=== PATIENT | female | born 1970 | race Caucasian/White ===

== ENCOUNTER → 2016-05-09 18:32 | Outpatient (CLI) | payer MEDICARE ==
[2015-02-20 12:32] VITALS: BMI 46.3
[~2016-05-09 18:32] MED LIST: ADDERALL 30 MG30 MG PO; ATIVAN0.5 MG PO; BACTROBAN NASAL1 GM NASAL; BRINTELLIX10 MG PO; CELEBREX200 MG PO; CYCLOBENZAPRINE10 MG PO; DICLOFENAC PO; ELIQUIS2.5 MG PO; EMBEDA ER 50-21 EACH PO; HYDROCODON-ACE1 EAC9 PO; MOVANTIK25 MG PO; NEURONTIN 300300 MG PO; NORCO 10/325 TA1 TA1 PO; NUVIGIL250 MG PO; OMEPRAZOLE20 M1 PO; OXYBUTYNIN CHLOR5 MG PO; PERCOCET 10/3251 TA1 PO; PROZAC20 MG PO; SOMA350 MG PO; VESICARE10 MG PO; VESICARE5 MG PO; VOLTAREN75 MG PO; XANAX0.5 MG PO; XANAX1 MG PO; ZANAFLEX2 M1 PO; [UNRECOGNIZED DRUG - OTHER] PO
== END | disposition home or self-care (01) ==
LOC: D.LABREF 18:32
DX: M17.12 Unilateral primary osteoarthritis, left knee (principal); Z11.8 Encounter for screening for other infectious and parasitic diseases

== ENCOUNTER 2016-05-25 09:30 | Inpatient (IN) | payer MEDICARE ==
[~2016-05-25] VITALS: Ht 167.6 cm; Wt 118.2 kg
[2016-05-25 10:39] LABS: BASOPHILS 0.5 % (0.0-2.0); EOSINOPHILS 5.7 % (0-7); HEMATOCRIT 32.6 % (36.0-48.0); HEMOGLOBIN 10.1 g/dL (12-16); IMMATURE GRANULOCYTES 0.2 % (0-5); LYMPHOCYTES 29.5 % (15-50); MCH 22.4 pg (26.0-34.0); MCV 72.4 fL (80.0-100.0); MEAN PLATELET VOLUME 9.8 fL (7.4-10.4); MONOCYTES 10.6 % (2-11); NEUTROPHILS 53.5 % (40-80); PLATELET COUNT 234 10x3/uL (130-400); RDW 17.3 % (11.5-14.5); WBC 6.5 10x3/uL (4.8-10.8)
[2016-05-25 10:45] LABS: APPEARANCE HAZY (CLEAR); BACTERIA MODERATE /hpf (NONE SEEN); BILIRUBIN NEGATIVE (NEGATIVE); COLOR YELLOW (YELLOW); GLUCOSE NEGATIVE (NEGATIVE); KETONE NEGATIVE (NEGATIVE); LEUKOCYTE ESTERASE TRACE (NEGATIVE); MUCUS <1+ /lpf (NONE SEEN); NITRITE NEGATIVE (NEGATIVE); PROTEIN NEGATIVE (NEGATIVE); RED CELLS - URINE OCC /hpf (0-5); SPECIFIC GRAVITY 1.015 (1.005-1.020); UROBILINOGEN NORMAL (NORMAL)
[2016-05-25 10:47] LABS: ANION GAP 11.6 mmol/L (8-16); CALCIUM 8.5 mg/dL (8.5-10.1); CARBON DIOXIDE 29.9 mmol/L (21.0-32.0); CREATININE - SERUM 0.9 mg/dL (0.6-1.3); POTASSIUM - SERUM 3.5 mmol/L (3.5-5.1)
[2016-05-25 10:49] LABS: INR 1.07 (0.85-1.17); PROTIME 13.7 SECONDS (11.6-15.0)
[2016-05-29] VITALS (12 sets, daily range): BP systolic 101–148; BP diastolic 46–94; Ht 167.6 cm; Wt 118.2 kg
--- NOTE | 2016-05-29 12:30 | NUR ---
PATIENT RECEIVED TO FLOOR FROM PACU VIA BED. NO SIGNS OF DISTRESS NOTED. VITAL SIGNS STABLE. ORIENTED TO ROOM. DRESSING TO LEFT KNEE CLEAN, DRY AND INTACT WITH ICE PACK IN PLACE. SCDS ON BILATERALLY. INCENTIVE SPIROMETER AND TEACHING ON USE PROVIDED. STATES UNDERSTANDING. SIDE RAILS UP X3. BED IN LOW POSITION. CALL LIGHT IN REACH. YELLOW FALL RISK BAND PLACED ON PATIENT. BED ALARM ON.
--- NOTE | 2016-05-29 15:05 | NUR ---
PATIENT ALERT IN BED. RESTING QUIETLY WITH EYES CLOSED. WAKES EASY. SCHEDULED MEDICATION ADMINISTERED. VITAL SIGNS STABLE. SIDE RAILS UP X2. BED IN LOW POSITION. CALL LIGHT IN REACH.
--- NOTE | 2016-05-29 18:40 | NUR ---
LEFT LEG PLACED IN CPM. ICE PACK IN PLACE. DENIES NEEDS. SIDE RAILS UP X2. BED IN LOW POSITION. CALL LIGHT IN REACH.
--- NOTE | 2016-05-29 19:30 | NUR ---
RECIEVED SHIFT REPORT. PT IS LYING IN BED. ALERT AND ORIENTED AND ABLE TO VERBALIZE NEEDS. IV IS PATENT AND FLUIDS ARE RUNNING PER ORDER. SCD'S ON. CPM ON. DRESSING TO LEFT KNEE C/D/I. PT STATES PAIN IS 8/10. NO NEEDS ARE VERBALIZED AT THIS TIME. WILL CONTINUE TO MONITOR. SIDE RAILS ARE UP X 2. BED IS IN LOWEST POSITION. BED ALARM IS ON FOR SAFETY. CALL LIGHT IS WITHIN REACH.
--- NOTE | 2016-05-29 21:05 | NUR ---
SHIFT ASSESSMENT COMPLETED. NIGHT MEDS TO BE GIVEN BY STUDENT AND INSTRUCTOR. WILL MONITOR. SIDE RAILS X 2. BED LOW. BED ALARM ON. CALL LIGHT IN REACH.
[2016-05-30 04:00] VITALS: BP 109/63
[2016-05-30 06:32] LABS: HEMATOCRIT 28.5 % (36.0-48.0); HEMOGLOBIN 8.6 g/dL (12-16); MCH 22.1 pg (26.0-34.0); MCHC 30.2 g/dL (31.0-37.0); MCV 73.3 fL (80.0-100.0); MEAN PLATELET VOLUME 10.5 fL (7.4-10.4); RBC 3.89 10x6/uL (4.00-5.40); RDW 17.4 % (11.5-14.5); WBC 7.8 10x3/uL (4.8-10.8)
--- NOTE | 2016-05-30 07:10 | NUR ---
PATIENT RECEIVED ALERT IN BED WITH CPM TO LEFT LEG. C/O PAIN 10/10 AND NEEDING TO VOID. CPM REMOVED. VOIDED 600CC WITHOUT DIFFICULTY. NORCO PER PRN ORDER. ICE PACK TO LEFT KNEE. DENIES FURTHER NEEDS. SIDE RAILS UP X2. BED IN LOW POSITION. CALL LIGHT IN REACH.
[2016-05-30 08:33] VITALS: BP 114/64
--- NOTE | 2016-05-30 08:38 | NUR ---
PATIENT ALERT IN BED EATING BREAKFAST. SCHEDULED MEDICATION ADMINISTERED. DENIES NEEDS. SIDE RAILS UP X2. BED IN LOW POSITION. CALL LIGHT IN REACH.
--- NOTE | 2016-05-30 10:15 | NUR ---
PATIENT SITTING UP IN CHAIR AT BEDSIDE ALERT. NO SIGNS OF DISTRESS NOTED. CALL LIGHT IN REACH.
[2016-05-30 12:50] VITALS: BP 122/70
--- NOTE | 2016-05-30 13:24 | NUR ---
* Is the patient Alert and Oriented? Yes 0 * How many steps to enter\exit or inside your home? Ramp 0 * PCP Dr. Sherman 0 * Pharmacy [facility] 0 * Preadmission Environment Home Alone 0 * ADLs Independent 0 * Equipment Bedside Commode Cane Rolling Walker Shower Chair 0 * List name and contact numbers for known caregivers / representatives who currently or will assist patient after discharge: Mother Amy Torres [phone] * Additional services required to return to the preadmission environment? Yes 0 * Can the patient safely return to the preadmission environment? Yes 0 * Has this patient been hospitalized within the prior 30 days at any hospital? No 05/30/2016 13:28 DCP: Discharge Planning Patient Name: GARTH JACOBS Admission Status: Elective Accout number: [id number] Admission Date: 05-29-2016 : 1970 Admission Diagnosis:UNILATERAL PRIMARY OSTEOARTHRITIS, LEFT KNEE Attending: RAH Current LOS: 1 Anticipated DC Date: 05-31-2016 Planned Disposition: Outpatient PT\OT Primary Insurance: MEDICARE A & B Discharge Planning Comments: CM met with patient to assess dc plans/needs. Patient states she lives alone, but her mother lives next door. She states her mother will be staying with her after discharge, along with her 25 year old daughter. Prior to hospitalization she reports she was independent with all ADL's & IADL's. She has a cane, walker, shower chair & BSC at home. She has chosen [facility] for outpatient physical therapy - Appointment scheduled for 06/02 @ 0945 - Rx faxed. CPM has been ordered by [facility] MD office prior to admission & will be delivered to the home after discharge. Anticipate dc 05/31. CM will follow. Financial Sales Representative: Milli Dominguez
--- NOTE | 2016-05-30 15:23 | NUR ---
ASSISTED UP TO BSC AND BACK TO BED SBA X1. VOIDED WITHOUT DIFFICULTY. POSITIONED SELF FOR COMFORT. NORCO PER PRN ORDER. NO FURTHER NEEDS. SIDE RAILS UP X2. BED IN LOW POSITION. CALL LIGHT IN REACH.
[2016-05-30 17:33] VITALS: BP 114/81
--- NOTE | 2016-05-30 18:15 | NUR ---
LEFT LEG IN CPM. DENIES NEEDS. SIDE RAILS UP X2. BED IN LOW POSITION. CALL LIGHT IN REACH.
--- NOTE | 2016-05-30 19:05 | NUR ---
PATIENT IN BED CRYING REQUESTING "A SHOT FOR PAIN." ANMOL LIANG WITH DR MELINDA TAY. WILL AWAIT CALLBACK
--- NOTE | 2016-05-30 19:25 | NUR ---
RECIEVED SHIFT REPORT. PT IS LYING IN BED. ALERT AND ORIENTED AND ABLE TO VERBALIZE NEEDS. IV IS PATENT AND SALINE LOC AT THIS TIME. CPM ON. SCD'S ON. DRESSING TO LEFT KNEE C/D/I. PT STATES PAIN IS 10/10. PT IS AMBULATORY WITH ASSISTANCE. NO NEEDS ARE VERBALIZED AT THIS TIME. WILL CONTINUE TO MONITOR. SIDE RAILS ARE UP X 2. BED IS IN LOWEST POSITION. CALL LIGHT IS WITHIN REACH.
--- NOTE | 2016-05-30 21:29 | NUR ---
SHIFT ASSESSMENT COMPLETED. NIGHT MEDS GIVEN WITH NO PROBLEMS. NO NEEDS ARE VOICED. WILL MONITOR. SIDE RAILS X 2. BED LOW. CALL LIGHT IN REACH.
[2016-05-30 22:58] VITALS: BP 154/97
[2016-05-31 02:04] VITALS: BP 144/76
[2016-05-31 05:37] LABS: HEMATOCRIT 27.6 % (36.0-48.0); HEMOGLOBIN 8.4 g/dL (12-16); MCH 22.3 pg (26.0-34.0); MCHC 30.4 g/dL (31.0-37.0); MCV 73.2 fL (80.0-100.0); MEAN PLATELET VOLUME 10.5 fL (7.4-10.4); RBC 3.77 10x6/uL (4.00-5.40); RDW 17.4 % (11.5-14.5)
[2016-05-31 06:10] LABS: WBC 10.1 10x3/uL (4.8-10.8)
[2016-05-31 06:15] VITALS: BP 122/70
--- NOTE | 2016-05-31 07:00 | NUR ---
PATIENT RECEIVED IN LOW NINO POSITION RESTING WITH EYES CLOSED. RESPIRATIONS EVEN AND UNLABORED. LEFT LEG IN CPM .SIDE RAILS UP X2. BED IN LOW POSITION. CALL LIGHT IN REACH.
--- NOTE | 2016-05-31 08:00 | NUR ---
PATIENT SITTING UP IN BED ALERT. NO SIGNS OF DISTRESS NOTED. SCHEDULED MEDICATION ADMINISTERED. SIDE RAILS UP X2. BED IN LOW POSITION. CALL LIGHT IN REACH.
[2016-05-31] MEDS ORDERED: ELIQUIS2.5 MG PO (08:08)
[2016-05-31] MEDS ORDERED: PERCOCET 10/3251 TA1 PO (08:08)
[2016-05-31 08:46] VITALS: BP 122/75
--- NOTE | 2016-05-31 10:30 | NUR ---
PATIENT SITTING UP IN CHAIR RESTING WITH EYES CLOSED. RESPIRATIONS EVEN AND UNLABORED. WAKES EASY. CALL LIGHT IN REACH. DENIES NEEDS.
--- NOTE | 2016-05-31 11:45 | NUR ---
PATIENT SITTING UP IN CHAIR ALERT. NO SIGNS OF DISTRESS NOTED. RATES PAIN 5/10. CALL LIGHT IN REACH. DENIES NEEDS.
--- NOTE | 2016-05-31 12:36 | NUR ---
SITTING UP IN CHAIR AT BEDSIDE. C/O PAIN 10/12. TORADOL ADMINISTERED PER PRN ORDER. NO FURTHER NEEDS VOICED. CALL LIGHT TIN REACH.
[2016-05-31 12:45] VITALS: BP 143/79
--- NOTE | 2016-05-31 13:30 | NUR ---
SITTING UP IN BED ALERT. RATES PAIN 08/12. DENIES NEEDS. BED IN LOW POSITION. CALL LIGHT IN REACH.
--- NOTE | 2016-05-31 15:00 | NUR ---
ALERT IN BED VISITING WITH GUEST. NO SIGNS OF DISTRESS NOTED. BED IN LOW POSITION. CALL LIGHT IN REACH.
[2016-05-31 16:43] VITALS: BP 126/66
--- NOTE | 2016-05-31 17:11 | NUR ---
PERCOCET ADMINISTERED PER PRN ORDER. RATES PAIN 09/11. DENIES NEEDS. SIDE RAILS UP X2. BED IN LOW POSITION. CALL LIGHT IN REACH.
[2016-05-31 20:00] VITALS: BP 126/69
--- NOTE | 2016-05-31 20:07 | NUR ---
REC'D.IN BED CPM TO LEFT LEG DRSG DRY AND INTACT.FOOT WARM PEDAL PULSE PRESENT WIGGLES TOES AND DORSIFLEXES WITHOUT DIFFICULTY WILL CONTINUE TO MONITOR FOR ELLEN CHGES NEUROVASCULAR STATUS AND FOLLOW CURRENT PLAN OF CARE
[2016-06-01] VITALS: BP 129/77
--- NOTE | 2016-06-01 01:49 | NUR ---
PATIENT RESTING WITH EYES CLOSED. NO VISIBLE SIGNS OF DISTRESS. BED IN LOWEST POSITION AND CALL LIGHT WITHIN REACH.
[2016-06-01 04:00] VITALS: BP 110/52
--- NOTE | 2016-06-01 08:00 | NUR ---
AWAKE AND ALERT AT THIS TIME. CPM ON AND IN WORKING ORDER. SCD'S OFF PER PT. BED ALARM ON AND IN WORKING ORDER. REQUESTING COFFEE AT THIS TIME. RESPIRATIONS EVEN AND NON LABORED. DENIES FURTHER NEEDS, CALL LIGHT IN REACH. WILL CONTINUE WITH PLAN OF CARE.
--- NOTE | 2016-06-01 08:19 | NUR ---
CPM REMOVED AT THIS TIME. SKEIN SPOOLER REPORTS HYPOTENSIVE BLOOD PRESSURE ON MACHINE READING. WILL RE-CHECK A MANUAL. BP 104/66 MANUALLY.
--- NOTE | 2016-06-01 08:22 | NUR ---
06/01/2016 8:17 DCP: Discharge Planning Patient Name: GARTH JACOBS Encounter No: [id number] : 1970 Primary Insurance: MEDICARE A & B Anticipated DC Date: 05-31-2016 Planned Disposition: Outpatient PT\OT External Planned Provider: : DCP follow-up note: Patient and family in agreement with discharge plan. No changes to plan. CPM will be delivered to the home after dc. Case management will follow and assist as needed. Milli Dominguez
[2016-06-01 08:25] VITALS: BP 104/66
[2016-06-01 13:03] VITALS: BP 108/46
--- NOTE | 2016-06-01 14:00 | NUR ---
IV D/C AND DISCHARGE PAPERWORK REVIEWED BY JENSEN HEMPHILL AT THIS TIME. DENIES QUESTIONS OR CONCERNS. D/C HOME WITH MOTHER AT THIS TIME. DRESSING REMAINS INTACT IT IS NOT SATURATED.
--- NOTE | 2016-06-10 10:10 | OP ---
PATIENT NAME: GARTH JACOBS MEDICAL RECORD: [id number] :[birth year] LOCATION:D.[id number] ADMISSION DATE:05/29/16 SURGEON: XAVIER LAWRENCE MD DATE OF OPERATION: 05/29/2016 Orthopedic Surgery Operative Note PREOPERATIVE DIAGNOSIS: Tricompartmental osteoarthritis of the left knee. POSTOPERATIVE DIAGNOSIS: Tricompartmental osteoarthritis of the left knee. PROCEDURE: Left total knee arthroplasty--press fit. SURGEON: Xavier Lawrence MD. ANESTHESIA: General. INTRAOPERATIVE COMPLICATIONS: None. SUMMARY OF PATHOLOGIC FINDINGS: The patient had significant osteoarthritis in the medial side, which had also given 2 osteoarthritis on the lateral side. 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 The patient tolerated until she began to have a secondary arthritis in the other compartments. OPERATIVE SUMMARY IN DETAIL: After obtaining the appropriate preoperative orthopedic surgery consent as well as anesthetic consultation, evaluation and clearance, the patient was brought to the operating room and placed on the operating table in supine position. After adequate general laryngeal mask was administered, tourniquet was placed about the proximal aspect of the left lower extremity. Left lower extremity was then prepped and draped in routine sterile fashion. The leg was elevated and exsanguinated. Tourniquet was inflated to 350 mmHg. Routine midline incision was taken down. Paramedian arthrotomy was performed. Patella was everted and distal femur was exposed. The findings as noted as above were seen. The patient had a deep chondral lesion as well as what appeared to be necrosis in the area of the previous orthobiologic fixation along with the kissing lesion on the tibial plateau as well as patellofemoral arthrosis and grade 2 arthritis had lateral compartment. Distal femoral intramedullary guide hole was created. The distal femoral cuts were made. Appropriate measurements were taken. Chamfer cuts were made and then the proximal tibia was exposed in its entirety. Again, intramedullary guide hole was created for proximal tibial cutting. Trials corresponding to the above sizes, that is a #5 press fit femur and a # 5 tibial component were taken through a range of motion and found to be excellent in all planes. The patella was then cut in preparation for the Tritanium back symmetric patella size 9 x 31. After final preparations were made, the components were put into place, excellent fit including the patella. The patella was pressed into place using the patellar compression system for the Triathlon system. The patella was reduced and tightened. The knee was taken through range of motion and found to be stable in all planes. The entire area was copiously irrigated and then the paramedian arthrotomy was closed with #2 Ethibond followed by #1 Vicryl, 2-0 Vicryl and skin serge. Sterile dressings were applied. The patient was awakened, taken to recovery room in stable condition. All final needle and sponge counts were correct. OPERATIVE REPORT [id number] GARTH JACOBS TRANSINT:[id number] Voice Confirmation ID: [id number] DOCUMENT ID: [id number] MELINDA JUAREZ, XAVIER JAMES at 1010 CC: [id number] DICTATION DATE: 06/08/16 1057 SUPERVISOR COMPRESSED YEAST: 06/08/16 1332 DIS IN 06/01/16 [id number] [place] [address]
== END 2016-06-01 14:35 | disposition home or self-care (01) | DRG 470 ==
LOC: D.SDCHOLD 09:30 → D.MS 05-29 09:18 → D.SDCHOLD 05-29 09:30 → D.MS 05-29 12:09
PROVIDERS: ADMIT Orthopaedic Surgery
PROC: 0SRD0J9 Replacement of Left Knee Joint with Synthetic Substitute, Cemented, Open Approach (ICD-10-PCS; principal; 2016-05-29 10:00)
DX: M17.12 Unilateral primary osteoarthritis, left knee (principal); D62 Acute posthemorrhagic anemia; K21.9 Gastro-esophageal reflux disease without esophagitis; G47.30 Sleep apnea, unspecified; G47.419 Narcolepsy without cataplexy

== ENCOUNTER 2016-11-13 07:25 | Day surgery (SDC) | payer MEDICARE ==
[2016-11-10 14:06] LABS: HEMATOCRIT 32.3 % (36.0-48.0); MCH 22.2 pg (26.0-34.0); MCV 71.6 fL (80.0-100.0); MEAN PLATELET VOLUME 9.9 fL (7.4-10.4); RBC 4.51 10x6/uL (4.00-5.40); RDW 17.6 % (11.5-14.5)
[~2016-11-13] VITALS: Ht 167.6 cm; Wt 121.1 kg
[2016-11-13 07:13] VITALS: BP 151/94; Ht 167.6 cm; Wt 121.1 kg
[~2016-11-13 07:25] MED LIST changes: +HYDROCODONE-APA1 TAB PO; +REQUIP0.5 MG PO
[2016-11-13] MEDS ORDERED: OXYCODONE HCL5 MG PO (09:12)
--- NOTE | 2016-11-13 14:11 | NUR ---
1350 PT'S RIDE IS HERE, RELEASED IN WC WITH ESCORT.
--- NOTE | 2016-11-13 14:39 | OP ---
PATIENT NAME: GARTH JACOBS MEDICAL RECORD: [id number] :[birth year] LOCATION:D[facility] ADMISSION DATE: SURGEON: XAVIER CASSIDY MD DATE OF OPERATION: 11/13/2016 SURGEON: Xavier Cassidy MD PREOPERATIVE DIAGNOSES: Lipoma of the right upper back, lipoma of the right upper extremity, lipoma left upper extremity. POSTOPERATIVE DIAGNOSES: Lipoma of the right upper back, lipoma of the right upper extremity, lipoma left upper extremity. PROCEDURE PERFORMED: 1. Excisional biopsy of back lipoma 6 x 5 x 4 cm. 2. Excisional biopsy of right upper extremity lipoma 3 x 3 x 2 cm. 3. Excisional biopsy of left upper extremity 4 x 3 x 3 cm. ANESTHESIA: General. COMPLICATIONS: None. SPECIMENS: As above. Case was clean. ESTIMATED BLOOD LOSS: 20 cc. OPERATIVE COURSE: After consent was obtained, the patient was taken to the operating room and the patient was intubated and she was then place into the prone position. A timeout was taken to confirm the correct patient and procedure. The back and extremities were prepped and draped in typical sterile fashion. A 5 cc of local anesthetic were injected into the right upper extremity. Transverse skin incision made with a 15 blade scalpel. Dissection continued with Metzenbaum scissors. The lipoma was grasped with an Allis and was circumferentially dissected using Metzenbaum scissors. Biopsy total lipoma size was 3 x 3 x 2 cm and sent for permanent pathology. Next, the local anesthetic was injected into the right upper back approximately 10 cc. Transverse skin incision was made. The lipoma was circumferentially dissected using Metzenbaum scissors. Total size was 6 x 5 x 4 cm and sent for permanent pathology. The wound was then closed in 2 layers. The deep layer was closed with 3-0 Vicryl suture. The skin was closed with 4-0 Monocryl. The right upper extremity lesion, incision was closed with 4-0 Monocryl. Next, local anesthetic was injected into the left upper extremity. Skin incisions made with a 15 blade scalpel. The lipoma was circumferentially dissected using Metzenbaum scissors. It measured 4 x 3 x 3 cm. Incision was then closed with 4-0 Monocryl, Mastisol and Steri-Strips. At the end of the case, all needle and instrument counts were correct. No complications occurred. The patient was extubated and transferred to the PACU in stable condition. TRANSINT:[id number] Voice Confirmation ID: [id number] DOCUMENT ID: [id number] OPERATIVE REPORT [id number] GARTH JACOBS,XAVIER Naidu MD at 1439 CC: [id number] DICTATION DATE: 11/13/16910 ROLLING MACHINE OPERATOR: 11/13/16 1325 [facility] 11/13/[address] [address]
== END 2016-11-13 13:50 | disposition home or self-care (01) ==
LOC: D.OPS 07:25 → D.PAN 08:30 → D.OPS 08:30
PROVIDERS: Anesthesiology
DX: D17.1 Benign lipomatous neoplasm of skin and subcutaneous tissue of trunk (principal); L72.0 Epidermal cyst; K21.9 Gastro-esophageal reflux disease without esophagitis; I83.93 Asymptomatic varicose veins of bilateral lower extremities; R32 Unspecified urinary incontinence; G47.33 Obstructive sleep apnea (adult) (pediatric); Z68.41 Body mass index [BMI] 40.0-44.9, adult; Z01.812 Encounter for preprocedural laboratory examination; E66.01 Morbid (severe) obesity due to excess calories

== ENCOUNTER → 2017-08-07 14:01 | Outpatient (CLI) | payer MEDICARE, MEDICAID ==
[2016-11-13 07:13] VITALS: BMI 43.2
[~2017-08-07 14:01] MED LIST changes: +OXYCODONE HCL5 MG PO
[2017-08-07 14:38] LABS: BASOPHILS 0.9 % (0-2); HEMATOCRIT 30.8 % (36.0-48.0); HEMOGLOBIN 9.2 g/dL (12-16); IMMATURE GRANULOCYTES 0.2 % (0-5); LYMPHOCYTES 37.9 % (15-50); MCH 20.7 pg (26.0-34.0); MCHC 29.9 g/dL (31.0-37.0); MCV 69.4 fL (80.0-100.0); MEAN PLATELET VOLUME 9.2 fL (7.4-10.4); MONOCYTES 7.5 % (2-11); NEUTROPHILS 49.5 % (40-80); PLATELET COUNT 270 10x3/uL (130-400); RBC 4.44 10x6/uL (4.00-5.40); RDW 17.6 % (11.5-14.5); WBC 5.8 10x3/uL (4.8-10.8)
[2017-08-07 14:58] LABS: ALBUMIN 3.7 g/dL (3.4-5.0); ALKALINE PHOSPHATASE 69 U/L (46-116); ALT (SGPT) 19 U/L (10-68); BILIRUBIN - TOTAL 0.22 mg/dL (0.2-1.3); CALC OSMOLALITY 285 mosm/kg (275-300); CARBON DIOXIDE 28.9 mmol/L (21.0-32.0); CHLORIDE - SERUM 105 mmol/L (98-107); CHOL - HDL RATIO 4.5 ratio (2.3-4.1); CHOLESTEROL, TOTAL 205 mg/dL (0-200); CREATININE - SERUM 0.8 mg/dL (0.6-1.3); GLUCOSE 103 mg/dL (74-106); HDL CHOLESTEROL 46 mg/dL (32-96); LDL CHOLESTEROL 137 mg/dL (0-100); POTASSIUM - SERUM 4.2 mmol/L (3.5-5.1); PROTEIN - SERUM 7.4 g/dL (6.4-8.2); SODIUM 142 mmol/L (136-145); TRIGLYCERIDE 111 mg/dL (30-200); UREA NITROGEN 21 mg/dL (7-18); eGFR NON AFRICAN AMERICAN 81 mL/min (90-120)
[2017-08-08 07:31] LABS: FOLATE (FOLIC ACID) - SERUM 16.9 ng/mL (>3.0)
== END | disposition home or self-care (01) ==
LOC: D.LAB 14:01
PROVIDERS: Surgery
DX: K21.9 Gastro-esophageal reflux disease without esophagitis (principal); E66.2 Morbid (severe) obesity with alveolar hypoventilation; G47.33 Obstructive sleep apnea (adult) (pediatric)

== ENCOUNTER 2017-09-06 08:31 | Outpatient (CLI) | payer MEDICARE ==
[2016-11-13 07:13] VITALS: BMI 43.2
== END 2017-09-06 10:30 ==
LOC: D.OPS 08:31
DX: K21.9 Gastro-esophageal reflux disease without esophagitis (principal)

== ENCOUNTER 2017-11-29 09:26 | Day surgery (SDC) | payer MEDICARE ==
[~2017-11-29] VITALS: Ht 167.6 cm; Wt 116.1 kg
--- NOTE | ~2017-11-29 | OP ---
PATIENT NAME: GARTH JACOBS MEDICAL RECORD: [id number] :[birth year] LOCATION:[facility] ADMISSION DATE: SURGEON: MATT CESAR DATE OF OPERATION: 11/29/2017 SURGEON: Matt Cesar DPM PREOPERATIVE DIAGNOSES: 1. Hallux abductovalgus deformity, right foot. 2. Degenerative joint changes second metatarsophalangeal joint, right foot. POSTOPERATIVE DIAGNOSES: 1. Hallux abductovalgus deformity, right foot. 2. Degenerative joint changes second metatarsophalangeal joint, right foot. PROCEDURES: 1. Rah bunionectomy, right foot. 2. Eben-implant arthroplasty with partial metatarsal head resection second metatarsophalangeal joint, right foot. ANESTHESIA: General. HEMOSTASIS: Pneumatic ankle tourniquet inflated to 250 mmHg for 76 minutes. ESTIMATED BLOOD LOSS: Minimal. MATERIALS: One 2.5-mm cannulated screw (Beeline) and one lesser metatarsophalangeal joint eben-implant (Beeline). INJECTABLES: A 30 mL of 0.5% bupivacaine plain. The patient has a longstanding history of pain associated with the bunion deformity on the right foot as well as degenerative joint second metatarsophalangeal joint. We have discussed the proposed procedure. Risks and benefits were reviewed. Complications were discussed. She was appropriately consented for the above-mentioned procedure. The patient was brought to the operating room and placed on the operating table in a supine position. A time-out was called. Dr. Cesar identified the patient, the surgical site, and the surgery to be performed. Once appropriate anesthesia was obtained, the foot was prepped and draped in the usual aseptic manner. The pneumatic ankle tourniquet was inflated to 250 mmHg on the well-padded right ankle. DESCRIPTION OF PROCEDURE #1: Rah bunionectomy, right foot: Attention was directed to the dorsal aspect of the first metatarsophalangeal joint where a 6-cm linear incision was made just medial to the extensor hallucis longus tendon. This incision was carried deep to the soft tissue with care being taken to retract all vital neurovascular structures. All bleeders were cauterized along the way. Through this incision, the first intermetatarsal space was entered utilizing both blunt and sharp dissection. The conjoint tendon of the abductor hallucis tendon was noted at the base of the proximal phalanx and was sharply transected. Attention was then directed further proximally to the level OPERATIVE REPORT [id number] GARTH JACOBS of the fibular sesamoidal ligament. It was isolated and sharply transected. Attention was then redirected to the dorsal aspect of the first metatarsophalangeal joint where the periosteum was reflected from the first metatarsal head and the base of the proximal phalanx. The medial aspect of the first metatarsal head was noted to be hypertrophied. Utilizing a sagittal saw, all hypertrophied bone was removed. Next, utilizing a sagittal saw, a V-shaped osteotomy was created in the head of the first metatarsal. This is a humalhi-agw-odlnclm osteotomy with the apex oriented distally. The capital fragment was translocated laterally and impacted upon the first metatarsal shaft. Next, utilizing the medical representative's recommended technique, one 2.5-mm screw was placed across the osteotomy. Excellent fixation was noted after placement of the screw. All remaining over hanging bone from the medial aspect of the first metatarsal shaft was removed with the sagittal saw. All rough and sharp bone edges were smoothed with a rasp and rongeur. The surgical site was then irrigated with copious amounts of normal sterile saline via bulb syringe. At this stage, intraoperative decision was made to not perform the Golden osteotomy as the toe was noted to be in a rectus position. The periosteum was reapproximated and coapted utilizing 3-0 Vicryl. The subcutaneous was reapproximated and coapted utilizing 4-0 Vicryl. The skin was reapproximated and coapted utilizing 4-0 nylon. DESCRIPTION OF PROCEDURE #2: Eben-implant arthroplasty second metatarsophalangeal joint, right foot: Attention was directed to the dorsal aspect of the second metatarsophalangeal joint where a 4-cm linear incision was made. This incision was carried deep to soft tissue with care being taken to retract all vital neurovascular structures. All bleeders were cauterized along the way. The periosteum was then reflected from the second metatarsophalangeal joint thus exposing the joint. The head of the first metatarsal was noted to be severely eroded and essentially free of cartilage. It was also hypertrophied. The base of the proximal phalanx also was noted to have degenerative changes. All hypertrophied bone was removed with rongeur and the sagittal saw. Next, utilizing the medical representative's recommended technique, a partial metatarsal head resection was performed utilizing a sagittal saw and then the appropriate implant was placed into the second metatarsal head utilizing the medical representative's recommended technique. The second metatarsophalangeal joint was then placed through a range of motion and the range of motion was noted to be increased. Surgical site was then irrigated with copious amounts of normal sterile saline via bulb syringe. All remaining sharp bone edges were smoothed with a rasp or rongeur. The periosteum was then reapproximated and coapted utilizing 3-0 Vicryl. The subcutaneous was then reapproximated and coapted utilizing 4-0 Vicryl. The skin was then reapproximated and coapted utilizing 4-0 nylon. A dressing consisting of Xeroform, 4 x 4's, Kerlix, and Jose Manuel bandage was applied to the right foot. The pneumatic ankle tourniquet was deflated and capillary refill time was immediate to all digits of the right foot. The patient tolerated the procedure and anesthesia well. She left the operating room with vital signs stable and capillary refill time intact. The patient was discharged home with instructions to ice and elevate the right foot. She has a boot to help offload the foot. She has my cell phone number for after-hour difficulties. She was provided with appropriate pain medication. There were no complications with this procedure. We will follow up with her in 1 week. OPERATIVE REPORT [id number] GARTH JACOBS TRANSINT:[id number] Voice Confirmation ID: [id number] DOCUMENT ID: [id number] MATT CESAR CC: [id number] DICTATION DATE: 11/29/17 1525 CHEF INSTRUCTOR: 11/29/17 1559 [facility] [address] [place] [address]
[2017-11-29 09:55] LABS: HEMATOCRIT 31.9 % (36.0-48.0); HEMOGLOBIN 9.6 g/dL (12-16); MCH 21.2 pg (26.0-34.0); MCHC 30.1 g/dL (31.0-37.0); MCV 70.4 fL (80.0-100.0); MEAN PLATELET VOLUME 9.8 fL (7.4-10.4); RBC 4.53 10x6/uL (4.00-5.40); RDW 18.1 % (11.5-14.5); WBC 6.1 10x3/uL (4.8-10.8)
[2017-11-29 12:11] VITALS: BP 146/83; Ht 167.6 cm; Wt 116.1 kg
== END 2017-11-29 17:30 | disposition home or self-care (01) ==
LOC: D.PAN 09:26 → D.OPS 11:45 → D.PAN 11:45
PROVIDERS: Anesthesiology
DX: M20.11 Hallux valgus (acquired), right foot (principal); M19.071 Primary osteoarthritis, right ankle and foot; Z01.812 Encounter for preprocedural laboratory examination

== ENCOUNTER → 2018-01-21 06:53 | Outpatient (CLI) | payer MEDICARE ==
[2017-11-29 12:11] VITALS: BMI 41.4
== END | disposition home or self-care (01) ==
LOC: D.RT 06:53
DX: R06.09 Other forms of dyspnea (principal)

== ENCOUNTER → 2018-04-01 07:11 | Day surgery (SDC) | payer MEDICARE ==
[~2018-04-01] VITALS: Ht 167.6 cm; Wt 127.3 kg
[2018-04-01 07:42] LABS: BASOPHILS 0.6 % (0-2); EOSINOPHILS 4.4 % (0-7); HEMATOCRIT 30.9 % (36.0-48.0); HEMOGLOBIN 9.3 g/dL (12-16); IMMATURE GRANULOCYTES 0.1 % (0-5); LYMPHOCYTES 34.5 % (15-50); MCH 20.6 pg (26.0-34.0); MCHC 30.1 g/dL (31.0-37.0); MCV 68.5 fL (80.0-100.0); MEAN PLATELET VOLUME 9.9 fL (7.4-10.4); MONOCYTES 10.1 % (2-11); NEUTROPHILS 50.3 % (40-80); PLATELET COUNT 263 10x3/uL (130-400); RBC 4.51 10x6/uL (4.00-5.40); RDW 18.4 % (11.5-14.5)
[2018-04-01 07:52] VITALS: BP 167/95; Ht 167.6 cm; Wt 127.3 kg
[2018-04-01 08:03] LABS: HCG SERUM NEGATIVE (NEGATIVE)
[2018-04-01 08:14] LABS: ALBUMIN 3.4 g/dL (3.4-5.0); ALKALINE PHOSPHATASE 56 U/L (46-116); ALT (SGPT) 16 U/L (10-68); BILIRUBIN - TOTAL 0.25 mg/dL (0.2-1.3); CALC OSMOLALITY 279 mosm/kg (275-300); CARBON DIOXIDE 25.6 mmol/L (21.0-32.0); CHLORIDE - SERUM 103 mmol/L (98-107); CREATININE - SERUM 0.8 mg/dL (0.6-1.3); GLUCOSE 107 mg/dL (74-106); POTASSIUM - SERUM 4.1 mmol/L (3.5-5.1); PROTEIN - SERUM 7.5 g/dL (6.4-8.2); SODIUM 139 mmol/L (136-145); UREA NITROGEN 18 mg/dL (7-18); eGFR NON AFRICAN AMERICAN 81 mL/min (90-120)
--- NOTE | 2018-04-01 09:19 | NUR ---
0920 IV DC'D. CATHETER INTACT. PRESSURE HELD. NO BLEEDING AT SITE. BANDAID APPLIED.
== END | disposition home or self-care (01) ==
LOC: D.OPS 07:11
PROVIDERS: Anesthesiology
DX: K21.0 Gastro-esophageal reflux disease with esophagitis (principal); K44.9 Diaphragmatic hernia without obstruction or gangrene; K29.70 Gastritis, unspecified, without bleeding; E66.2 Morbid (severe) obesity with alveolar hypoventilation; G47.33 Obstructive sleep apnea (adult) (pediatric); I83.90 Asymptomatic varicose veins of unspecified lower extremity; Z68.41 Body mass index [BMI] 40.0-44.9, adult; Z87.891 Personal history of nicotine dependence; Z96.659 Presence of unspecified artificial knee joint; M19.90 Unspecified osteoarthritis, unspecified site; F32.9 Major depressive disorder, single episode, unspecified; F41.9 Anxiety disorder, unspecified; Z01.812 Encounter for preprocedural laboratory examination

== ENCOUNTER 2018-05-02 14:47 | Inpatient (IN) | payer MEDICARE ==
[~2018-05-02] VITALS: Ht 167.6 cm; Wt 137.4 kg
[2018-05-03 14:39] LABS: HEMATOCRIT 31.8 % (36.0-48.0); HEMOGLOBIN 9.6 g/dL (12-16); MCH 20.6 pg (26.0-34.0); MCHC 30.2 g/dL (31.0-37.0); MCV 68.4 fL (80.0-100.0); RBC 4.65 10x6/uL (4.00-5.40); RDW 18.6 % (11.5-14.5); WBC 7.2 10x3/uL (4.8-10.8)
[2018-05-06] VITALS (7 sets, daily range): BP systolic 122–133; BP diastolic 78–86; BMI 46.7; BMI 45.3
[2018-05-06 12:24] LABS: HEMATOCRIT 31.4 % (36.0-48.0); HEMOGLOBIN 9.3 g/dL (12-16)
[2018-05-06 13:24] LABS: HEMATOCRIT 31.2 % (36.0-48.0); HEMOGLOBIN 9.3 g/dL (12-16); MCH 20.7 pg (26.0-34.0); MCHC 29.8 g/dL (31.0-37.0); MCV 69.5 fL (80.0-100.0); MEAN PLATELET VOLUME 10.4 fL (7.4-10.4); RBC 4.49 10x6/uL (4.00-5.40); WBC 9.9 10x3/uL (4.8-10.8)
[2018-05-07] VITALS: BP 91/54
[2018-05-07 04:00] VITALS: BP 97/59
[2018-05-07 06:11] LABS: ALBUMIN 2.8 g/dL (3.4-5.0); ANION GAP 17.5 mmol/L (8-16); BILIRUBIN - TOTAL 0.62 mg/dL (0.2-1.3); CALCIUM 7.9 mg/dL (8.5-10.1); CARBON DIOXIDE 22.2 mmol/L (21.0-32.0); POTASSIUM - SERUM 4.7 mmol/L (3.5-5.1)
[2018-05-07 06:16] LABS: BASOPHILS 0.1 % (0-2); EOSINOPHILS 0 % (0-7); IMMATURE GRANULOCYTES 0.3 % (0-5); LYMPHOCYTES 5.7 % (15-50); MCH 20.5 pg (26.0-34.0); MCHC 29.3 g/dL (31.0-37.0); MCV 69.9 fL (80.0-100.0); MEAN PLATELET VOLUME 10.8 fL (7.4-10.4); MONOCYTES 10.2 % (2-11); NEUTROPHILS 83.7 % (40-80); RDW 19.3 % (11.5-14.5)
[2018-05-07 06:28] LABS: RBC 3.46 10x6/uL (4.00-5.40); WBC 17.8 10x3/uL (4.8-10.8)
[2018-05-07 06:29] LABS: HEMATOCRIT 24.2 % (36.0-48.0); HEMOGLOBIN 7.1 g/dL (12-16); PLATELET COUNT 309 10x3/uL (130-400)
--- NOTE | 2018-05-07 06:39 | NUR ---
194) REC'D IN BED SOMEWHAT SEDATED STILL OPENS EYES AND TALKS THEN GOES BACK TO SLEEP BP 100/48. AT BEDSIDE.SCD'S INTACT.BANDAGE WINDING MACHINE OPERATOR MORPHINE REMAINS INTACT AT 1MG Q10MIN WITH 10MG Q4HR LOCKOUT.WILL CONTINUE TO MONITOR FOR ANY CHGES. AND FOLLOW CURRENT PLAN OF CARE.
[2018-05-07 09:24] VITALS: BP 122/88
[2018-05-07 12:00] VITALS: BP 102/63
--- NOTE | 2018-05-07 14:28 | MORECARE ---
CASE MANAGEMENT DISCHARGE SUMMARY PATIENT: GARTH JACOBS UNIT: [id number] ADM DATE: 05/06/18 AGE: 47 : 68 SEX: F ROOM/BED: D.2235 AUTHOR: CATRINA,DOC PHYSICIAN: REFERRING PHYSICIAN: XAVIER CASSIDY MD DATE OF SERVICE: 05/07/18 Discharge Plan Patient Name: GARTH JACOBS Facility: [facility]:[place] : 1970 Planned Disposition: Home Anticipated Discharge Date: Discharge Date: Expected LOS: Initial Reviewer: [email or web address] Initial Review Date: 05/07/2018 Generated: 05/07/18 3:28 pm Comments DCP- Discharge Planning Updated by [email or web address]: Angelina Singleton on 05/07/18 1:[address] Patient Name: GARTH JACOBS Admission Status: Elective Accout number: [id number] Admission Date: 05-06-2018 : 1970 Admission Diagnosis: Attending: XAVIER CASSIDY Current LOS: 1 Anticipated DC Date: Planned Disposition: Home Primary Insurance: MEDICARE A & B Discharge Planning Comments: CM met with patient to complete initial dc planning assessment. CM educated patient on the CM role and verbal consent given by patient to complete assessment. Patient lives at home with her . At discharge patient plans to return and feels this is a safe discharge. CM discussed availability of home health and medical equipment. Patient denied known discharge needs at this time. States her will drive her home on discharge. CM will continue to follow and will assist as needed with dc plans/needs. Information Security Manager: Angelina Singleton DCPIA - Discharge Planning Initial Assessment Updated by [email or web address]: Angelina Singleton on 05/07/18 2:25 pm * Is the patient Alert and Oriented? Yes * How many steps to enter\exit or inside your home? 4/0 * PCP Dr. Sherman * Pharmacy [facility] * Preadmission Environment Home with Family * ADLs Independent * Equipment CPAP * List name and contact numbers for known caregivers / representatives who currently or will assist patient after discharge: Ga Jacobs - spouse - [phone] * Verbal permission to speak to the caregivers and representatives has been obtained from the patient. Yes * Community resources currently utilized None * Please name any agencies selected above. DME for CPAP is [facility] * Additional services required to return to the preadmission environment? No * Can the patient safely return to the preadmission environment? Yes * Has this patient been hospitalized within the prior 30 days at any hospital? No Patient Name: GARTH JACOBS Page [id number] at 1428 All edits/amendments must be made on the electronic document DICTATION DATE: 05/07/181426 STORE LEAD: ANABEL 05/07/181426 RPT#: [id number] DC DATE: STATUS: ADM IN [facility] [address] [place] [address] END OF REPORT
[2018-05-07 14:38] LABS: BASOPHILS 0.3 % (0-2); EOSINOPHILS 0.4 % (0-7); IMMATURE GRANULOCYTES 0.6 % (0-5); LYMPHOCYTES 8.1 % (15-50); MCH 23.4 pg (26.0-34.0); MEAN PLATELET VOLUME 10.2 fL (7.4-10.4); MONOCYTES 11.5 % (2-11); NEUTROPHILS 79.1 % (40-80); RBC 3.85 10x6/uL (4.00-5.40); RDW 23.5 % (11.5-14.5); WBC 16.9 10x3/uL (4.8-10.8)
[2018-05-07 14:56] LABS: MCV 77.9 fL (80.0-100.0); PLATELET COUNT 234 10x3/uL (130-400)
[2018-05-07 17:43] VITALS: BP 114/79
--- NOTE | 2018-05-07 18:20 | NUR ---
PATIENT ASSISTED TO RESTROOM, TOLERATED WELL, SMALL AREA TO LOWER RIGHT ABDOMINAL QUADRANT WITH SMALL AMOUT OF DRAINAGE NOTED WITH AREA OF HEMATOMA FORMED UNDER SKIN. DR CASSIDY ON FLOOR AND ASSESSED AREA WITH ABDOMINAL BINDER ORDERED. COVERED WITH 4X4 AND TAPE, AREA MARKED WITH MARKER TO MONITOR INCREASE IN SIZE
[2018-05-07 20:00] VITALS: BP 109/72
--- NOTE | 2018-05-07 20:30 | NUR ---
PT RESTING IN BED. ALERT AND ORIENTED. NO SIGNS OF DISTRESS. BREATHING EVEN AND UNLABORED. PT STATES NO PROBLEMS AT THIS TIME. PT STATES FALLOWING RULES AND DRINKING 1OZ Q1HR. 4LO2 NASAL CANNULA. ABD INCISION CLEAN DRY AND ITNACT. NO LOWER LEG SWELLING PRESENT. IV SITE LT HAND DRESSING CLEAN DRY AND INTACT. NO SIGNS OF INFECTION. SCD ON. WILL CONTINUE PLAN OF CARE. CALL LIGHT IN REACH. BED LOWERED AND LOCKED. BED RAILS UP X1.
[2018-05-07 21:55] LABS: HEMATOCRIT 26.4 % (36.0-48.0); HEMOGLOBIN 8.4 g/dL (12-16); MCH 23.1 pg (26.0-34.0); MCHC 31.8 g/dL (31.0-37.0); MCV 72.7 fL (80.0-100.0); MEAN PLATELET VOLUME 11.2 fL (7.4-10.4); PLATELET COUNT 195 10x3/uL (130-400); RBC 3.63 10x6/uL (4.00-5.40); RDW 21.3 % (11.5-14.5); WBC 21.4 10x3/uL (4.8-10.8)
[2018-05-07 22:04] LABS: LYMPHOCYTES 15 % (15-50); MONOCYTES 1 % (2-11); NEUTROPHILS 84 % (40-80); PLATELET ESTIMATE NORMAL
[2018-05-08] VITALS (13 sets, daily range): BP systolic 124–169; BP diastolic 71–102
[2018-05-08 05:03] LABS: BASOPHILS 0.1 % (0-2); EOSINOPHILS 0 % (0-7); HEMATOCRIT 23.6 % (36.0-48.0); IMMATURE GRANULOCYTES 0.3 % (0-5); LYMPHOCYTES 8.8 % (15-50); MCH 23.4 pg (26.0-34.0); MCHC 31.8 g/dL (31.0-37.0); MCV 73.5 fL (80.0-100.0); MEAN PLATELET VOLUME 10.3 fL (7.4-10.4); MONOCYTES 9.9 % (2-11); NEUTROPHILS 80.9 % (40-80); RBC 3.21 10x6/uL (4.00-5.40); RDW 21.6 % (11.5-14.5); WBC 17.1 10x3/uL (4.8-10.8)
[2018-05-08 05:12] LABS: HEMOGLOBIN 7.5 g/dL (12-16); PLATELET COUNT 237 10x3/uL (130-400)
[2018-05-08 05:20] LABS: ANION GAP 15.9 mmol/L (8-16); CALCIUM 7.8 mg/dL (8.5-10.1); CARBON DIOXIDE 23.8 mmol/L (21.0-32.0); CREATININE - SERUM 2.4 mg/dL (0.6-1.3); POTASSIUM - SERUM 4.7 mmol/L (3.5-5.1)
--- NOTE | 2018-05-08 07:55 | NUR ---
PT RESTING IN BED WITH EYES CLOSED. RESPIRATIONS SHALLOW. O2@2L NC IN PLACE. O2 SATS 89%. EDUCATED PT REGARDING DEEP BREATHS THROUGH NOSE AND OUT THROUGH MOUTH. O2 SATS INCREASED TO 93%. SALINE LOC TO RIGHT HAND INTACT WITHOUT REDNESS OR EDEMA. IV TO LEFT HAND WITH LR @ 125ML/HR INFUSING VIA PUMP. SITE WITHOUT REDNESS OR EDEMA. LAP SITES X 5 TO ABDOMEN C/D/I. DENIES FURTHER NEEDS A THIS TIME. CL WITHIN REACH. ENCOURAGED TO CALL WITH NEEDS.
[2018-05-08 09:36] LABS: BASOPHILS 0.1 % (0-2); EOSINOPHILS 0.1 % (0-7); HEMATOCRIT 22.6 % (36.0-48.0); IMMATURE GRANULOCYTES 0.4 % (0-5); LYMPHOCYTES 9.2 % (15-50); MCH 23.1 pg (26.0-34.0); MCHC 31.4 g/dL (31.0-37.0); MCV 73.4 fL (80.0-100.0); MEAN PLATELET VOLUME 10.2 fL (7.4-10.4); MONOCYTES 11.4 % (2-11); NEUTROPHILS 78.8 % (40-80); PLATELET COUNT 223 10x3/uL (130-400); RBC 3.08 10x6/uL (4.00-5.40); RDW 21.7 % (11.5-14.5)
[2018-05-08 09:48] LABS: HEMOGLOBIN 7.1 g/dL (12-16)
--- NOTE | 2018-05-08 11:10 | NUR ---
PT TAKEN VIA BED FOR SURGICAL PROCEDURE. PORTABLE O2 IN PLACE.
--- NOTE | 2018-05-08 17:04 | NUR ---
PT RECIEVED. VSS. HR 74 NSR. 155/87 O2 VIA 15L NON REBREATHER O2 SAT 93% AWAITING NEW ORDERS
[2018-05-08 17:10] LABS: HEMATOCRIT 28.3 % (36.0-48.0); HEMOGLOBIN 9.2 g/dL (12-16)
--- NOTE | 2018-05-08 17:30 | NUR ---
1ST UNIT FFP ADM.
--- NOTE | 2018-05-08 18:21 | NUR ---
DR ANGE TAY
--- NOTE | 2018-05-08 19:45 | NUR ---
PT RECEIVED WITH EYES CLOSED AND CHEST RISING. O2 VIA HI-FLOW N/C AT 10LPM. EASILY AROUSED TO VERBAL STIMUI. NO S/S OF DISTRESS. ASSESSMENT COMPLETE, SEE FLOW SHEET. SEROSANGUENOUS DRAINAGED NOTED TO LEFT SIDE OF ABDOMEN AROUND LALIT DRAIN. GOWN AND PAD WITH DRAINAGE NOTED. LALIT DRAIN 2 NOTED WITH 70ML AND EMPTIED, COMPRESSED AND CAPPED. 1930 PT BEGAN MOANING AND BEGAN SHOUTING OUT FOR WATER, PT WITH NPO ORDERS AT THIS TIME. LEMON SWABS PROVIDED. WILL CONTINUE TO OBSERVE.
[2018-05-08 20:23] LABS: BASOPHILS 0.1 % (0-2); EOSINOPHILS 0 % (0-7); HEMATOCRIT 27.1 % (36.0-48.0); HEMOGLOBIN 8.8 g/dL (12-16); IMMATURE GRANULOCYTES 1.3 % (0-5); LYMPHOCYTES 3.4 % (15-50); MCH 25.3 pg (26.0-34.0); MCHC 32.5 g/dL (31.0-37.0); MCV 77.9 fL (80.0-100.0); MEAN PLATELET VOLUME 10.3 fL (7.4-10.4); MONOCYTES 4.8 % (2-11); NEUTROPHILS 90.4 % (40-80); PLATELET COUNT 159 10x3/uL (130-400); RBC 3.48 10x6/uL (4.00-5.40); RDW 20.7 % (11.5-14.5); WBC 14.6 10x3/uL (4.8-10.8)
--- NOTE | 2018-05-08 20:45 | NUR ---
PT BECAME RESTLESS AND BEGAN SHOUTING OUT FOR WATER AGAIN, UNCONSOLABLE. PAIN LEVEL ASSESSED AND PT STATES 8/10. MAR ASSESSED, ORDERS FOR MORPHINE SALES MANAGEMENT INTERN NOTED, SALES MANAGEMENT INTERN PUMP SETUP AND INITIATED PER MAY. PT CALMED, AND STATES 7/10 PAIN LEVEL AT THIS TIME. MOTHER IN ROOM AT 2014 WITH UPDATE GIVEN AND QUESTIONS ANSWERED. WILL CONTINUE TO OBSERVE.
--- NOTE | 2018-05-08 21:05 | NUR ---
JENNIFFER PAULA CALLED AND REQUESTED ABD SHARI.
[2018-05-08 21:44] LABS: BASOPHILS 0 % (0-2); EOSINOPHILS 0 % (0-7); HEMATOCRIT 30.7 % (36.0-48.0); HEMOGLOBIN 11.2 g/dL (12-16); IMMATURE GRANULOCYTES 0.6 % (0-5); LYMPHOCYTES 6.4 % (15-50); MCH 32.6 pg (26.0-34.0); MCHC 36.5 g/dL (31.0-37.0); MEAN PLATELET VOLUME 9.2 fL (7.4-10.4); MONOCYTES 5.9 % (2-11); NEUTROPHILS 87.1 % (40-80); RBC 3.44 10x6/uL (4.00-5.40); WBC 10.1 10x3/uL (4.8-10.8)
[2018-05-08 21:45] LABS: MCV 89.2 fL (80.0-100.0); PLATELET COUNT 192 10x3/uL (130-400)
--- NOTE | 2018-05-08 22:37 | NUR ---
PT CALM WITH PAIN TOLERATABLE, PT EASILY AWOKEN TO VERBAL STIMULI. GOWN AND PAD CHANGED WITH 2 NURSES, PT TOLERATED WELL AND ASSISTED WITH TURNING. ABDOMINAL DRESSING REINFORCED. CALL LIGHT IN REACH. WILL CONTINUE TO OBSERVE.
--- NOTE | 2018-05-08 23:30 | NUR ---
REASSESSMENT COMPLETED, SEE FLOW SHEET. RESTING WITH EYES CLOSED AND CHEST RISING. EASILY AWOKEN. NO DRAINAGE LEAKING FROM REINFORCEMENT NOTED. LALIT DRAINS X2 WITH BLOODY DRAINAGE NOTED AND COMPRESSED. WILL CONTINUE TO OBSERVE.
[2018-05-09] VITALS (24 sets, daily range): BP systolic 113–159; BP diastolic 69–99; Ht 167.6 cm; Wt 137.4 kg
--- NOTE | 2018-05-09 01:56 | NUR ---
PT WITH EYES CLOSE AND CHEST RISING. NO S/S OF DISTRESS. BP ELEVATED AT 160/98, SPO2 97% OTHER VS WNL. DRESSING REINFORCEMENT NOTED WITH SMALL AMOUNT OF DRAINAGE. LALIT DRAINS EMPTIED LALIT 1 60ML AND LALIT 2 20ML, CALL LIGHT IN REACH. WILL CONTINUE TO OBSERVE.
--- NOTE | 2018-05-09 02:27 | NUR ---
ORAL CARE PROVIDED WITH MINIMAL ASSIST. NO OTHER CONCERNS NOTED. WILL CONTINUE TO OBSERVE.
--- NOTE | 2018-05-09 03:49 | NUR ---
REASSESSMENT COMPLETED, SEE FLOW SHEET. NO S/S OF DISTRESS. WILL CONTINUE TO OBSERVE.
[2018-05-09 04:22] LABS: BASOPHILS 0 % (0-2); EOSINOPHILS 0 % (0-7); HEMATOCRIT 26.6 % (36.0-48.0); IMMATURE GRANULOCYTES 0.5 % (0-5); LYMPHOCYTES 5.5 % (15-50); MCH 24.8 pg (26.0-34.0); MCHC 31.6 g/dL (31.0-37.0); MEAN PLATELET VOLUME 9.9 fL (7.4-10.4); MONOCYTES 8.7 % (2-11); NEUTROPHILS 85.3 % (40-80); RBC 3.39 10x6/uL (4.00-5.40); RDW 21.2 % (11.5-14.5)
[2018-05-09 04:35] LABS: ANION GAP 12.5 mmol/L (8-16); CALCIUM 8.3 mg/dL (8.5-10.1); CARBON DIOXIDE 27.1 mmol/L (21.0-32.0); HEMOGLOBIN 8.4 g/dL (12-16); MCV 78.5 fL (80.0-100.0); PLATELET COUNT 150 10x3/uL (130-400); POTASSIUM - SERUM 4.6 mmol/L (3.5-5.1)
[2018-05-09 04:46] LABS: CREATININE - SERUM 0.9 mg/dL (0.6-1.3)
--- NOTE | 2018-05-09 06:06 | NUR ---
NELY MCCARTHY RECEIVED AND APPLIED. PT ASSISTED WITH MAX ASSIST. PT ASSIST WITH PULLING UP IN BED. HOB ELEVATED. PT BEGAN TO COUGH KAPOOR SPUTUM. TISSUE PROVIDED. PT ALERT AND ORIENTED. REORIENTED TO CALL LIGHT AND CHANNEL MAN. WILL CONTINUE TO OBSERVE
--- NOTE | 2018-05-09 07:00 | NUR ---
PT RESTING IN BED AWAKE AND ALERT. ORIENTED X 4. ABDOMINAL BINDER IN PLACE WITH 2 LALIT DRAINS UNDERNEATH HANGING OUT BOTTOM DRAINING SEROSANGUINEOUS FLUID IN ONE AND MUCH DARKER BILE LIKE FLUID IN THE OTHER. LUNG HOGUE CLEAR. GAVE A COUPLE OF ICE CHIPS PER REQUEST FOR DRY MOUTH. WILL CONTINUE TO MONITOR.
--- NOTE | 2018-05-09 08:00 | OP ---
PATIENT NAME: GARTH JACOBS MEDICAL RECORD: [id number] :68 LOCATION:[facility] [id number] ADMISSION DATE:05/06/18 SURGEON: XAVIER CASSIDY MD DATE OF OPERATION: 05/08/2018 SURGEON: Xavier Cassidy MD PREOPERATIVE DIAGNOSIS: Intraabdominal hemorrhage. POSTOPERATIVE DIAGNOSIS: Intraabdominal hemorrhage. PROCEDURE PERFORMED: Diagnostic laparoscopy, evacuation of intra-abdominal hematoma (2 liters), abdominal washout, and laparoscopic drain placement, left subclavian central venous line. ANESTHESIA: General. SURGEON: Xavier Cassidy MD CEMENT KILN OPERATOR: Payal Britt APN. WOUND CLASS: Clean. OPERATIVE COURSE: After consent was obtained, the patient was taken to the operating room and placed in supine position on the operating table. Next, general anesthesia was given via endotracheal intubation. After a timeout was performed to confirm the correct patient and procedure, the abdomen was prepped and draped in typical sterile fashion. Previous laparoscopic incisions were opened with an 11-blade scalpel. The 11-mm trocar was placed just above the umbilicus using optical trocar. The abdomen was entered under direct laparoscopic vision. Adequate pneumoperitoneum was achieved. The abdominal cavity was inspected. There was a significant amount of clotted and liquified older blood within the abdomen. All remaining trocars were placed and a 12-mm trocar in the right lateral quadrant, 5-mm trocar in the right lateral quadrant and the left lateral quadrant. At this time, all old clotted blood and liquified blood were suctioned from the abdomen without irrigation. This totaled approximately 2 liters. There was no active bleeding identified. All 4 quadrants of the abdomen were copiously and meticulously inspected. At this time, approximately 3 liters of warm normal saline were placed in the abdomen and again suctioned. Again, all 4 quadrants of the abdomen were explored laparoscopically without evidence of active bleeding. Another 2 liters of intra-abdominal fluid replaced and suctioned. Surgicel was placed in the left upper quadrant along the spleen. Surgicel powder was placed anteriorly on the liver. Two LALIT drains were placed into the abdomen and placed in the left upper quadrant and along the gastric staple line. The gastric staple line was meticulously inspected with no evidence of abnormality or bleeding. At this time, the 11-mm and the 12-mm trocar site were closed using the Erich-Diego and 0 Vicryl suture. All remaining instruments were removed. The abdomen was desufflated. Trocars were removed. Skin was closed with 4-0 Monocryl, Mastisol and Steri-Strips. At the end of the case, all needle and instrument counts were correct. No complications occurred. Next, the left chest was prepped and draped in typical sterile fashion. The left subclavian vein was cannulated on the first pass. A guidewire was placed, dilator was passed over the wire in a standard Seldinger fashion. The catheter OPERATIVE REPORT [id number] GARTH JACOBS was then passed over the wire in a standard Seldinger fashion. A Biopatch was placed. The catheter was secured to the skin using 2-0 nylon suture and a sterile Tegaderm dressing. All 3 ports were aspirated and flushed without difficulty. The patient was then transferred to the recovery room in satisfactory condition. TRANSINT:[id number] Voice Confirmation ID: [id number] DOCUMENT ID: [id number] XAVIER CASSIDY MD at 0800 CC: [id number] DICTATION DATE: 05/08/18 1540 SALES REPRESENTATIVE PUBLICATIONS: 05/09/18 0036 ADM IN [facility] [place] [id number] [place] [address]
[2018-05-09 08:41] LABS: INR 1.41 (0.85-1.17); PROTIME 16.7 SECONDS (11.6-15.0)
[2018-05-09 08:42] LABS: APTT 32.4 SECONDS (22.8-39.4)
--- NOTE | 2018-05-09 09:19 | NUR ---
CHANGED DRESSINGS TO ABDOMINAL DRAINS. BOTH SATURATED WITH SEROSANGUINEOUS DRAINAGE. ALSO EMPTIED LALIT DRAINS--SEE I&O FLOW SHEET. GAVE PT WATER PER REQUEST AND DR. HAUSER PERMISSION. INSTRUCTED TO DRINK ONLY 30 CC AT A TIME Q HOUR. PT VERBALIZED UNDERSTANDING.
[2018-05-09 09:59] LABS: BASOPHILS 0 % (0-2); EOSINOPHILS 0 % (0-7); HEMATOCRIT 27.1 % (36.0-48.0); HEMOGLOBIN 8.5 g/dL (12-16); IMMATURE GRANULOCYTES 0.3 % (0-5); LYMPHOCYTES 8.6 % (15-50); MCH 24.6 pg (26.0-34.0); MCHC 31.4 g/dL (31.0-37.0); MCV 78.3 fL (80.0-100.0); MEAN PLATELET VOLUME 10.2 fL (7.4-10.4); MONOCYTES 9.2 % (2-11); NEUTROPHILS 81.9 % (40-80); PLATELET COUNT 166 10x3/uL (130-400); RBC 3.46 10x6/uL (4.00-5.40); RDW 21.5 % (11.5-14.5); WBC 13.5 10x3/uL (4.8-10.8)
--- NOTE | 2018-05-09 10:59 | NUR ---
PATIENT AMBULATED WITH PHYSICAL THERAPY ABOUT 25 FEET.
--- NOTE | 2018-05-09 10:59 | NUR ---
TAKEN TO IR FOR BARIUM SWALLOW TEST VIA WHEEL CHAIR.
--- NOTE | 2018-05-09 11:20 | NUR ---
PATIENT RETURNED FROM GASTROGRAFFIN SWALLOW. IR NURSE REPORTED PATIENT PASSED TEST--NO LEAKS. ASSISTED PATIENT BACK IN BED AND HOOKED UP TO MONITOR. VSS.
--- NOTE | 2018-05-09 12:20 | NUR ---
RECEIVED PATIENT TO UNIT AT THIS TIME. INTUBATED AND BAGGED BY RT TILL TRANSFER TO NEW BED WHEN ETT HOOKED UP TO VENTILATOR. SETTINGS PER DR. LAGUERRE'S ORDERS. NSR. BP STABLE. HR ELEVATED TO 120'S. WILL CHECK FOR FURTHER ORDERS AND CONTINUE TO MONITOR
--- NOTE | 2018-05-09 13:00 | NUR ---
PATIENT RESTING IN BED C CALL MELCHOR IN REACH. VSS. WILL CONTINUE TO MONITOR.
[2018-05-09 16:11] LABS: BASOPHILS 0.1 % (0-2); EOSINOPHILS 0.2 % (0-7); HEMOGLOBIN 7.9 g/dL (12-16); IMMATURE GRANULOCYTES 0.4 % (0-5); MCH 24.8 pg (26.0-34.0); MCHC 31.6 g/dL (31.0-37.0); MCV 78.6 fL (80.0-100.0); MEAN PLATELET VOLUME 9.7 fL (7.4-10.4); MONOCYTES 9.8 % (2-11); NEUTROPHILS 77.5 % (40-80); PLATELET COUNT 154 10x3/uL (130-400); RBC 3.18 10x6/uL (4.00-5.40); RDW 21.7 % (11.5-14.5); WBC 11.6 10x3/uL (4.8-10.8)
--- NOTE | 2018-05-09 16:49 | NUR ---
PAGED DR. CASSIDY ABOUT H&H OF 9.9 AND 25 TO ASK IF HE WANTS TO GIVE BLOOD. AWAITING RETURN CALL. PT AWAKE AND ALERT WITH STABLE VS.
--- NOTE | 2018-05-09 16:54 | NUR ---
SPOKE TO DR. CASSIDY ON PHONE. ORDERED 1 UNIT FFP.
--- NOTE | 2018-05-09 19:10 | NUR ---
PT WITH EYES CLOSED AND CHEST RISING. EASILY AWOKEN. PT ON HIGH FLOW N/C AT 4LPM. MEDINA PATENT WITH VIRIDIANA URINE NOTED. LALIT DRAINS X2 COMPRESSED WITH DRAINAGE NOTED. NO COMPLAINTS OF PAIN. MORPHINE FISH FARM MANAGER IN USE. CALL LIGHT IN REACH. WILL CONTINUE TO OBSERVE.
--- NOTE | 2018-05-09 20:15 | NUR ---
1 UNIT FFP INFUSING. PT TOLERATE WELL AT THIS TIME. WILL CONTINUE TO OBSERVE.
--- NOTE | 2018-05-09 21:15 | NUR ---
FFP INFUSION COMPLETE. PT TOLERATED WELL. WILL CONTINUE TO OBSERVE.
[2018-05-09 22:17] LABS: BASOPHILS 0 % (0-2); HEMATOCRIT 23.4 % (36.0-48.0); IMMATURE GRANULOCYTES 0.3 % (0-5); LYMPHOCYTES 14.9 % (15-50); MCH 24.7 pg (26.0-34.0); MCHC 31.6 g/dL (31.0-37.0); MCV 78.3 fL (80.0-100.0); MEAN PLATELET VOLUME 9.6 fL (7.4-10.4); MONOCYTES 11.5 % (2-11); NEUTROPHILS 72.3 % (40-80); PLATELET COUNT 147 10x3/uL (130-400); RBC 2.99 10x6/uL (4.00-5.40); WBC 9.3 10x3/uL (4.8-10.8)
[2018-05-09 22:18] LABS: HEMOGLOBIN 7.4 g/dL (12-16)
--- NOTE | 2018-05-09 22:33 | NUR ---
DR. CASSIDY PAGED AND RETURNED CALL. REPORTED CRITICAL HGB 7.4. 2 UNITS PRBCS AND 1 UNIT FFP ORDER. ORDERS PLACED AND LAB AWARE. WAITING FOR LAB TO NOTIFY WHEN READY.
--- NOTE | 2018-05-09 23:52 | NUR ---
1ST UNIT PRBC STARTED. VSS AT THIS TIME. UNIT VARIFIED WITH ANOTHER UNIT NURSE PRIOR TO START. CALL LIGHT IN REACH. WILL CONTINUE TO OBSERVE.
[2018-05-10] VITALS (17 sets, daily range): BP systolic 116–164; BP diastolic 69–104
--- NOTE | 2018-05-10 01:15 | NUR ---
1ST UNIT PRBC CONTINUES TO INFUSE, PT TOLERATING WELL. WILL CONTINUE TO OBSERVE.
--- NOTE | 2018-05-10 03:10 | NUR ---
REASSESSMENT COMPLETED, SEE FLOW SHEET. 2ND UNIT PRBC TRANSFUSING. WILL CONTINUE TO OBSERVE.
--- NOTE | 2018-05-10 05:59 | NUR ---
2ND UNIT PRBC COMPLETED, PT TOLERATED WELL. WILL CONTINUE TO OBSERVE.
--- NOTE | 2018-05-10 07:00 | NUR ---
PATIENT RESTING IN BED C CALL MELCHOR IN REACH. AWAKE ALERT AND ORIENTED. VSS. LUNG HOGUE CLEAR. NO COMPLAINTS OF PAIN. LALIT DRAINS AND ABDOMINAL INCISIONS INTACT WITH DRESSINGS CDI. O2 AT 5 L NC. WILL CONTINUE TO MONITOR.
[2018-05-10 08:04] LABS: CALC OSMOLALITY 281 mosm/kg (275-300); CALCIUM 8.1 mg/dL (8.5-10.1); CHLORIDE - SERUM 104 mmol/L (98-107); CREATININE - SERUM 0.7 mg/dL (0.6-1.3); GLUCOSE 95 mg/dL (74-106); POTASSIUM - SERUM 3.4 mmol/L (3.5-5.1); SODIUM 141 mmol/L (136-145); UREA NITROGEN 15 mg/dL (7-18); eGFR NON AFRICAN AMERICAN > 90 mL/min (90-120)
[2018-05-10 08:11] LABS: BASOPHILS 0.1 % (0-2); EOSINOPHILS 2.5 % (0-7); HEMATOCRIT 26.9 % (36.0-48.0); HEMOGLOBIN 8.6 g/dL (12-16); IMMATURE GRANULOCYTES 0.2 % (0-5); LYMPHOCYTES 14.1 % (15-50); MCH 25.4 pg (26.0-34.0); MCV 79.6 fL (80.0-100.0); MEAN PLATELET VOLUME 10.4 fL (7.4-10.4); MONOCYTES 12.4 % (2-11); NEUTROPHILS 70.7 % (40-80); PLATELET COUNT 156 10x3/uL (130-400); RBC 3.38 10x6/uL (4.00-5.40); RDW 21.5 % (11.5-14.5); WBC 9.2 10x3/uL (4.8-10.8)
--- NOTE | 2018-05-10 09:00 | NUR ---
PATIENT TAKEN TO IR FOR CTA AT THIS TIME VIA BED.
--- NOTE | 2018-05-10 09:11 | NUR ---
Nutrition follow-up: Pt now on bariatric clear liquids (1 ounce q 30 minutes) Labs reviewed; pt receiving blood for low H/H. Wt: 303# RDN monitoring pts progress.
--- NOTE | 2018-05-10 09:30 | NUR ---
PATIENT RETURNED FROM CTA AT THIS TIME. VSS.
--- NOTE | 2018-05-10 09:45 | NUR ---
MORPHINE SUBSTANCE ABUSE PREVENTION COORDINATOR DC'D. WASTED 4ML IN RED BIN WITNESSED BY NURSE TOOL CRIB CLERK SARAH. UNABLE TO WASTE IN PYXIS BECAUSE IT WAS PULLED SO MANY DAYS AGO AND DOES NOT SHOW UP.
--- NOTE | 2018-05-10 11:00 | NUR ---
ASSISTED IN PULLING PATIENT UP IN BED AND MAKING COMFORTABLE. NO COMPLAINTS. VSS. WILL CONTINUE TO MONITOR
--- NOTE | 2018-05-10 13:00 | NUR ---
PATIENT RESTING IN BED WITH CALL MELCHOR IN REACH AWAKE ALERT AND ORIENTED. VSS. VISITING WITH FAMILY MEMBER. WILL CONTINUE TO MONITOR
--- NOTE | 2018-05-10 14:30 | NUR ---
RECIVED REPORT FROM DARIEL SOLORZANO AT 1300. RECEIVED PATIENT FROM ICU. ACCOMPANIED BY ICU NURSE AND SPOUSE. GAVE PATIENT WEDDING RING FROM CHART. GAVE 60 ML OF CLEAR LIQUID FOR THE HOUR. NO COMPLAINTS. ALL NEEDS MET AT THIS TIME.
[2018-05-10 17:32] LABS: BASOPHILS 0.1 % (0-2); EOSINOPHILS 3.7 % (0-7); HEMATOCRIT 28.7 % (36.0-48.0); HEMOGLOBIN 9.3 g/dL (12-16); IMMATURE GRANULOCYTES 0.2 % (0-5); LYMPHOCYTES 15.9 % (15-50); MCH 25.7 pg (26.0-34.0); MCHC 32.4 g/dL (31.0-37.0); MCV 79.3 fL (80.0-100.0); MEAN PLATELET VOLUME 9.8 fL (7.4-10.4); MONOCYTES 14.1 % (2-11); PLATELET COUNT 152 10x3/uL (130-400); RBC 3.62 10x6/uL (4.00-5.40); RDW 21.1 % (11.5-14.5); WBC 9.4 10x3/uL (4.8-10.8)
--- NOTE | 2018-05-10 19:00 | NUR ---
REPORT RECEIVED AND CARE OF PT ASSUMED. PT LYING IN HIGH NINO'S POSITION WATCHING TV. LEFT SC PATENT WITH LR INFUSING AT 30 ML / HR. MEDINA CATHETER DRAINING TO GRAVITY WITH YELLOW URINE IN COLLECTION BAG. LAP SITES X5 WELL APPROXIMATED. SCD'S IN PLACE ON BLE. WILL MONITOR FOR NEEDS.
--- NOTE | 2018-05-10 21:06 | NUR ---
HS MEDICATIONS GIVEN TO INCLUDE MORPHINE IVP FOR PAIN. WILL MONITOR FOR EFFECTIVENES.
[2018-05-11 04:00] VITALS: BP 124/73
[2018-05-11 07:17] LABS: BASOPHILS 0 % (0-2); EOSINOPHILS 5.8 % (0-7); HEMATOCRIT 30.1 % (36.0-48.0); HEMOGLOBIN 9.6 g/dL (12-16); IMMATURE GRANULOCYTES 0.4 % (0-5); MCH 25.3 pg (26.0-34.0); MCHC 31.9 g/dL (31.0-37.0); MCV 79.4 fL (80.0-100.0); MEAN PLATELET VOLUME 10.4 fL (7.4-10.4); MONOCYTES 11.8 % (2-11); PLATELET COUNT 180 10x3/uL (130-400); RBC 3.79 10x6/uL (4.00-5.40); RDW 21.2 % (11.5-14.5); WBC 7.5 10x3/uL (4.8-10.8)
[2018-05-11 07:20] LABS: CALC OSMOLALITY 279 mosm/kg (275-300); CALCIUM 7.8 mg/dL (8.5-10.1); CHLORIDE - SERUM 101 mmol/L (98-107); CREATININE - SERUM 0.6 mg/dL (0.6-1.3); GLUCOSE 91 mg/dL (74-106); SODIUM 141 mmol/L (136-145); eGFR NON AFRICAN AMERICAN > 90 mL/min (90-120)
[2018-05-11 07:22] LABS: UREA NITROGEN 11 mg/dL (7-18)
--- NOTE | 2018-05-11 08:16 | NUR ---
PT RESTING IN BED. SPOKE WITH PT ABOUT GETTING UP TODAY AND WALKING. PT AGREED. NO S/S OF ACUTE DISTRESS. BROUGHT PT APPLE JUICE AND JELLO. NO S/S OF ACUTE DISTRESS. CL IN PLACE.
[2018-05-11 10:59] VITALS: BP 145/91
[2018-05-11 13:40] VITALS: BP 163/92
[2018-05-11 16:47] LABS: BASOPHILS 0.3 % (0-2); EOSINOPHILS 4.4 % (0-7); HEMOGLOBIN 10.1 g/dL (12-16); IMMATURE GRANULOCYTES 0.1 % (0-5); LYMPHOCYTES 16.7 % (15-50); MCH 25.8 pg (26.0-34.0); MCHC 32.6 g/dL (31.0-37.0); MCV 79.1 fL (80.0-100.0); MEAN PLATELET VOLUME 9.7 fL (7.4-10.4); MONOCYTES 9.8 % (2-11); NEUTROPHILS 68.7 % (40-80); PLATELET COUNT 162 10x3/uL (130-400); RBC 3.92 10x6/uL (4.00-5.40); RDW 20.7 % (11.5-14.5); WBC 7.7 10x3/uL (4.8-10.8)
[2018-05-11 16:59] VITALS: BP 137/81
--- NOTE | 2018-05-11 17:29 | NUR ---
PT AMBULATED ONCE AROUND THE NURSE'S STATION. STEADY ON FEET. DID WELL. NO S/S OF ACUTE DISTRESS. CL IN PLACE.
--- NOTE | 2018-05-11 19:06 | NUR ---
PT RESTING IN CHAIR. ASSITED BACK TO BED. NORCO GIVEN PER MD ORDER FOR PAIN. NO S.S OF ACUTE DISTRESS. CL IN PLACE.
--- NOTE | 2018-05-11 19:15 | NUR ---
RECEIVED CARE FROM DAY NURSE. IN BED WITH COMPANY AT SIDE. CALL LIGHT AT SIDE. IV INFUSING PER ORDER TO LEFT TLSC. MEDINA TO GRAVITY.
[2018-05-11 20:36] VITALS: BP 137/73
[2018-05-11 23:55] VITALS: BP 134/69
[2018-05-12 04:20] VITALS: BP 130/79
--- NOTE | 2018-05-12 05:09 | NUR ---
I have reviewed this patient and I concur with the Shift Assessment completed by the Licensed Practical Nurse today this shift.
[2018-05-12 06:59] LABS: BASOPHILS 0.4 % (0-2); EOSINOPHILS 5.8 % (0-7); HEMATOCRIT 31.3 % (36.0-48.0); HEMOGLOBIN 9.9 g/dL (12-16); IMMATURE GRANULOCYTES 0.1 % (0-5); LYMPHOCYTES 19.7 % (15-50); MCH 25.3 pg (26.0-34.0); MCHC 31.6 g/dL (31.0-37.0); MCV 80.1 fL (80.0-100.0); MEAN PLATELET VOLUME 10.7 fL (7.4-10.4); MONOCYTES 13.2 % (2-11); NEUTROPHILS 60.8 % (40-80); PLATELET COUNT 182 10x3/uL (130-400); RBC 3.91 10x6/uL (4.00-5.40); RDW 20.9 % (11.5-14.5); WBC 7.1 10x3/uL (4.8-10.8)
[2018-05-12 07:18] LABS: CALCIUM 8.2 mg/dL (8.5-10.1); CARBON DIOXIDE 28.4 mmol/L (21.0-32.0); CHLORIDE - SERUM 104 mmol/L (98-107); CREATININE - SERUM 0.6 mg/dL (0.6-1.3); GLUCOSE 89 mg/dL (74-106); SODIUM 143 mmol/L (136-145); eGFR NON AFRICAN AMERICAN > 90 mL/min (90-120)
[2018-05-12 07:20] LABS: CALC OSMOLALITY 281 mosm/kg (275-300); POTASSIUM - SERUM 2.9 mmol/L (3.5-5.1); UREA NITROGEN 7 mg/dL (7-18)
--- NOTE | 2018-05-12 07:52 | NUR ---
PT RESTING IN BED. CO OF PAIN AND "FRENCH". NO S/S OF ACUTE DISTRESS. "I HAD A BM LAST NIGHT". CL IN PLACE
[2018-05-12 08:59] VITALS: BP 146/91
--- NOTE | 2018-05-12 10:25 | NUR ---
PT AMBULATED 500 FT. DID WELL. GAIT STEADY. NO S/S OF ACUTE DISTRESS.
--- NOTE | 2018-05-12 13:05 | NUR ---
BLADDER TRAINING DONE.FC DC'D. 900 ML OF YELLOW URINE NOTED.
[2018-05-12 13:09] VITALS: BP 138/89
[2018-05-12 16:47] VITALS: BP 144/92
[2018-05-12 17:48] LABS: BASOPHILS 0.3 % (0-2); EOSINOPHILS 4.5 % (0-7); HEMATOCRIT 31.6 % (36.0-48.0); IMMATURE GRANULOCYTES 0.4 % (0-5); LYMPHOCYTES 12.4 % (15-50); MCH 25.4 pg (26.0-34.0); MCHC 31.6 g/dL (31.0-37.0); MCV 80.4 fL (80.0-100.0); MEAN PLATELET VOLUME 10.2 fL (7.4-10.4); MONOCYTES 12.2 % (2-11); NEUTROPHILS 70.2 % (40-80); PLATELET COUNT 195 10x3/uL (130-400); RBC 3.93 10x6/uL (4.00-5.40); RDW 20.8 % (11.5-14.5); WBC 7.6 10x3/uL (4.8-10.8)
--- NOTE | 2018-05-12 18:03 | NUR ---
PT RESTING IN BED WATCHING TV. NO S/S OF ACUTE DISTRESS. CL IN PLACE.
--- NOTE | 2018-05-12 19:15 | NUR ---
RECEIVED CARE FROM DAY NURSE. NO NEEDS VOICED AT THIS TIME. CALL LIGHT AT SIDE. IV INFUSING PER ORDER TO LEFT TLSC.
[2018-05-12 20:00] VITALS: BP 136/55
--- NOTE | 2018-05-12 20:00 | NUR ---
UP IN HALLS AMBULATING
[2018-05-13] VITALS: BP 130/48
[2018-05-13 03:00] VITALS: BP 124/80
[2018-05-13 05:48] LABS: BASOPHILS 0.3 % (0-2); EOSINOPHILS 7.5 % (0-7); HEMATOCRIT 30.9 % (36.0-48.0); HEMOGLOBIN 9.8 g/dL (12-16); IMMATURE GRANULOCYTES 0.1 % (0-5); LYMPHOCYTES 22.2 % (15-50); MCH 25.5 pg (26.0-34.0); MCHC 31.7 g/dL (31.0-37.0); MCV 80.5 fL (80.0-100.0); MONOCYTES 11.3 % (2-11); NEUTROPHILS 58.6 % (40-80); PLATELET COUNT 185 10x3/uL (130-400); RBC 3.84 10x6/uL (4.00-5.40); WBC 7.4 10x3/uL (4.8-10.8)
--- NOTE | 2018-05-13 06:55 | NUR ---
I have reviewed this patient and I concur with the Shift Assessment completed by the Licensed Practical Nurse today this shift.
--- NOTE | 2018-05-13 08:34 | NUR ---
PATIENT ALERT AND ORIENTED X 3. LUNGS CLEAR BILATERALLY. HEART SOUNDS EQUAL RATE AND RHYTHM. BOWEL SOUNDS HEARD X 4. STATES NO ISSUES MOVING BOWELS. LEFT LALIT DRAIN 1 PATENT AND DRAINING DARK BROWN LIQUID. LEFT LALIT DRAIN 2 PATENT AND DRAINING BROWN/BLOOD TINGED LIQUID. SKIN INTACT WITH ONE BRUISE TO LEFT FOREARM FROM PREVIOUS IV PER PATIENT. STATES HEADACHE LEVEL 7/10. PRN TYLENOL GIVEN. WILL CONTINUE TO MONITOR. STATES NO NEEDS AT THIS TIME.
[2018-05-13 08:44] VITALS: BP 147/88
[2018-05-13 12:38] VITALS: BP 145/93
--- NOTE | 2018-05-13 13:11 | NUR ---
STATES PAIN DECREASED TO 4/10 AND NO LONGER HAS HEADACHE. WILL CONTINUE TO MONITOR.
[2018-05-13] MEDS ORDERED: ZOFRAN ODT4 MG/UDTAB PO (13:41)
[2018-05-13] MEDS ORDERED: HYDROCODON-ACE1 EAC7 PO (13:41)
--- NOTE | 2018-05-13 14:09 | NUR ---
CVL REMOVED PER MD ORDER. TIP INTACT. 15 CM LONG. NO COMPLICATIONS. #ONE OF TWO LALIT DRAINS REMOVED PER MD ORDER. NO COMPLICATIONS. PATIENT EDUCATED ON HOW TO STRIP, DRAIN, AND DOCUMENT REMAINING LALIT DRAIN. VERBALIZED UNDERSTANDING.
--- NOTE | 2018-05-13 14:12 | NUR ---
OFFERED PATIENT SHOWER. REFUSED. STATES WANTS TO SHOWER AT HOME. DRESSINGS CHANGED TO LALIT DRAIN SITE. EDUCATION PROVIDED TO CHANGE DRESSING DAILY AND NEEDED WHEN SOILED. PATIENT VERBALIZED UNDERSTANDING. PROVIDED PATIENT WITH NEW DRESSING.
--- NOTE | 2018-05-13 14:45 | MORECARE ---
CASE MANAGEMENT DISCHARGE SUMMARY PATIENT: GARTH JACOBS UNIT: [id number] ADM DATE: 05/06/18 AGE: 47 : 68 SEX: F ROOM/BED: D.2213 AUTHOR: CATRINA,DOC PHYSICIAN: REFERRING PHYSICIAN: XAVIER CASSIDY MD DATE OF SERVICE: 05/13/18 Discharge Plan Patient Name: GARTH JACOBS Facility: [facility]:[place] : 1970 Planned Disposition: Home Anticipated Discharge Date: Discharge Date: Expected LOS: Initial Reviewer: [email or web address] Initial Review Date: 05/07/2018 Generated: 05/13/18 3:45 pm Comments DCP- Discharge Planning Updated by [email or web address]: Ramona Gee on 05/13/18 1:[address] Patient discharging home today, her will be her steam train driver home. She denies any needs. IMM served and explained DCP- Discharge Planning Updated by [email or web address]: Angelina Singleton on 05/07/18 12:[address] Patient Name: GARTH JACOBS Admission Status: Elective Accout number: [id number] Admission Date: 05-06-2018 : 1970 Admission Diagnosis: Attending: XAVIER CASSIDY Current LOS: 1 Anticipated DC Date: Planned Disposition: Home Primary Insurance: MEDICARE A & B Discharge Planning Comments: CM met with patient to complete initial dc planning assessment. CM educated patient on the CM role and verbal consent given by patient to complete assessment. Patient lives at home with her . At discharge patient plans to return and feels this is a safe discharge. CM discussed availability of home health and medical equipment. Patient denied known discharge needs at this time. States her will drive her home on discharge. CM will continue to follow and will assist as needed with dc plans/needs. Applications Packager: Angelina Singleton DCPIA - Discharge Planning Initial Assessment Updated by [email or web address]: Angelina Singleton on 05/07/18 2:25 pm * Is the patient Alert and Oriented? Yes * How many steps to enter\exit or inside your home? 4/0 * PCP Dr. Sherman * Pharmacy [facility] * Preadmission Environment Home with Family * ADLs Independent * Equipment CPAP * List name and contact numbers for known caregivers / representatives who currently or will assist patient after discharge: Ga Jacobs - spouse - [phone] * Verbal permission to speak to the caregivers and representatives has been obtained from the patient. Yes * Community resources currently utilized None * Please name any agencies selected above. DME for CPAP is [facility] * Additional services required to return to the preadmission environment? No * Can the patient safely return to the preadmission environment? Yes * Has this patient been hospitalized within the prior 30 days at any hospital? No Coverage Notice Reviewer: [id number] Amy Gee Notice Issued Date-Time: 05/13/2018 14:35 Notice Type: IM Discharge Notice Notice Delivered To: Patient Relationship to Patient: Apartment Maintenance Manager Name: Delivery Method: HAND - Hand Delivered Susi Days: Prior Verbal Notification: Recipient Understood Notice: Yes Recipient Signature: Yes Med Rec Note Co-signed by Attending: Coverage Notice Comment: Last DP export: 05/07/18 12:28 pm Patient Name: GARTH JACOBS Page [id number] at 1445 All edits/amendments must be made on the electronic document DICTATION DATE: 05/13/18 1445 BROOMCORN GRADER: ANABEL 05/13/18 1445 RPT#: [id number] DC DATE: STATUS: ADM IN [facility] [address] [place] [address] END OF REPORT
--- NOTE | 2018-05-13 16:03 | NUR ---
PATIENT DISCHARGED TO HOME WITH . PAPERWORK SENT WITH PATIENTS. BELONGINGS SENT WITH PATIENT. DENIES QUESTIONS.
--- NOTE | 2018-05-14 11:23 | MORECARE ---
CASE MANAGEMENT DISCHARGE SUMMARY PATIENT: GARTH JACOBS UNIT: [id number] ADM DATE: 05/06/18 AGE: 47 : 68 SEX: F ROOM/BED: D.2213 AUTHOR: CATRINA,DOC PHYSICIAN: REFERRING PHYSICIAN: XAVIER CASSIDY MD DATE OF SERVICE: 05/14/18 Discharge Plan Patient Name: GARTH JACOBS Facility: [facility]:[place] : 1970 Planned Disposition: Home Anticipated Discharge Date: Discharge Date: 05/13/2018 Expected LOS: 0 Initial Reviewer: [email or web address] Initial Review Date: 05/07/2018 Generated: 05/14/18 12:23 pm Comments DCP- Discharge Planning Updated by [email or web address]: Ramona Gee on 05/13/18 1:[address] Patient discharging home today, her will be her coach tour driver home. She denies any needs. IMM served and explained DCP- Discharge Planning Updated by [email or web address]: Angelina Singleton on 05/07/18 12:[address] Patient Name: GARTH JACOBS Admission Status: Elective Accout number: [id number] Admission Date: 05-06-2018 : 1970 Admission Diagnosis: Attending: XAVIER CASSIDY Current LOS: 1 Anticipated DC Date: Planned Disposition: Home Primary Insurance: MEDICARE A & B Discharge Planning Comments: CM met with patient to complete initial dc planning assessment. CM educated patient on the CM role and verbal consent given by patient to complete assessment. Patient lives at home with her . At discharge patient plans to return and feels this is a safe discharge. CM discussed availability of home health and medical equipment. Patient denied known discharge needs at this time. States her will drive her home on discharge. CM will continue to follow and will assist as needed with dc plans/needs. Finance Officer: Angelina Singleton DCPIA - Discharge Planning Initial Assessment Updated by [email or web address]: Angelina Singleton on 05/07/18 2:25 pm * Is the patient Alert and Oriented? Yes * How many steps to enter\exit or inside your home? 4/0 * PCP Dr. Sherman * Pharmacy [facility] * Preadmission Environment Home with Family * ADLs Independent * Equipment CPAP * List name and contact numbers for known caregivers / representatives who currently or will assist patient after discharge: Ga Jacobs - spouse - [phone] * Verbal permission to speak to the caregivers and representatives has been obtained from the patient. Yes * Community resources currently utilized None * Please name any agencies selected above. DME for CPAP is [facility] * Additional services required to return to the preadmission environment? No * Can the patient safely return to the preadmission environment? Yes * Has this patient been hospitalized within the prior 30 days at any hospital? No Coverage Notice Reviewer: [email or web address] Amy Gee Notice Issued Date-Time: 05/13/2018 14:35 Notice Type: IM Discharge Notice Notice Delivered To: Patient Relationship to Patient: Development Professional Name: Delivery Method: HAND - Hand Delivered Susi Days: Prior Verbal Notification: Recipient Understood Notice: Yes Recipient Signature: Yes Med Rec Note Co-signed by Attending: Coverage Notice Comment: Last DP export: 05/13/18 1:45 p Patient Name: GARTH JACOBS Page [phone] at 1123 All edits/amendments must be made on the electronic document DICTATION DATE: 05/14/18 112 SIGNAL OPERATOR LINGUIST: ANABEL 05/14/181121 RPT#: [id number] DC DATE:05/13/18 STATUS: DIS IN [facility] [address] [place] [address] END OF REPORT
== END 2018-05-13 15:00 | disposition home or self-care (01) | DRG 620 ==
LOC: D.MS 05-06 06:00 → D.SDCHOLD 05-06 06:00 → D.ICU 05-06 06:00 → D.SDCHOLD 05-06 08:15 → D.MS 05-06 12:26 → D.ICU 05-08 16:42 → D.MS 05-10 13:42
PROVIDERS: Anesthesiology; ADMIT Surgery; ATTEND Surgery
PROC: 0BQT4ZZ Repair Diaphragm, Percutaneous Endoscopic Approach (ICD-10-PCS; 2018-05-06)
PROC: 0DB64Z3 Excision of Stomach, Percutaneous Endoscopic Approach, Vertical (ICD-10-PCS; principal; 2018-05-06 08:30)
PROC: 0WCG4ZZ Extirpation of Matter from Peritoneal Cavity, Percutaneous Endoscopic Approach (ICD-10-PCS; 2018-05-08)
PROC: 05H633Z Insertion of Infusion Device into Left Subclavian Vein, Percutaneous Approach (ICD-10-PCS; 2018-05-08)
DX: E66.01 Morbid (severe) obesity due to excess calories (principal); D62 Acute posthemorrhagic anemia; K91.840 Postprocedural hemorrhage of a digestive system organ or structure following a digestive system procedure; K91.870 Postprocedural hematoma of a digestive system organ or structure following a digestive system procedure; K95.89 Other complications of other bariatric procedure; S36.113A Laceration of liver, unspecified degree, initial encounter; G47.33 Obstructive sleep apnea (adult) (pediatric); Z68.41 Body mass index [BMI] 40.0-44.9, adult; K21.9 Gastro-esophageal reflux disease without esophagitis; K44.9 Diaphragmatic hernia without obstruction or gangrene

== ENCOUNTER → 2018-05-21 12:26 | Outpatient (CLI) | payer MEDICARE ==
[2018-05-09 09:30] VITALS: BMI 48.7
[~2018-05-21 12:26] MED LIST changes: +HYDROCODON-ACE1 EAC7 PO; +ZOFRAN ODT4 MG/UDTAB PO
== END | disposition home or self-care (01) ==
LOC: D.NM 12:26
PROVIDERS: ATTEND Surgery
DX: K83.8 Other specified diseases of biliary tract (principal)